=== PATIENT | female | born 1980 ===

== ENCOUNTER 2017-09-22 17:53 | Emergency (ER) | payer OTHER ==
[2017-09-22 18:13] VITALS: BP 131/85; PULSE 83; RESP 20; TEMP 98.2; O2SAT 100
== END 2017-09-22 18:25 | disposition home or self-care (01) ==
LOC: ED 17:53
DX: G89.18 Other acute postprocedural pain (principal); Z98.890 Other specified postprocedural states
CPT/HCPCS: 99282